=== PATIENT | male | born 1995 | race African-American/Black ===

== ENCOUNTER 2017-04-15 13:22 | Emergency (ER) | payer OTHER ==
[2017-04-15] MEDS ORDERED: ACETAMINOPHEN TAB 500 MG TAB PO STA (13:33)
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
[2017-04-15 13:43] VITALS: RESP 20
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
[2017-04-15 15:05] VITALS: BP 132/79; PULSE 86
[2017-04-15 15:26] VITALS: TEMP 99
== END 2017-04-15 15:26 | disposition home or self-care (01) ==
LOC: EC 13:22
DX: S01.111A Laceration without foreign body of right eyelid and periocular area, initial encounter (principal); R50.9 Fever, unspecified; R05 Cough; R11.0 Nausea; F17.200 Nicotine dependence, unspecified, uncomplicated; Y04.8XXA Assault by other bodily force, initial encounter; Y04.0XXA Assault by unarmed brawl or fight, initial encounter
CPT/HCPCS: 12011; 70450; 71020; 99285